=== PATIENT | female | born 1990 | race Caucasian/White ===

== ENCOUNTER 2016-08-27 20:45 | Emergency (ER) | payer OTHER ==
[~2016-08-27 20:45] MED LIST: CENTRUM PO; DESYREL50 MG DOB; EFFEXOR100 MG PO; MOTRIN600 MG PO; NO MEDICATIONS; PEN-VEE K PO; PRENATAL VITAMI1 TA3 PO
== END 2016-08-27 21:43 | disposition left against medical advice (07) ==
LOC: CED 20:45
DX: Z53.21 Procedure and treatment not carried out due to patient leaving prior to being seen by health care provider (principal)

== ENCOUNTER 2016-09-01 11:00 | Inpatient (IN) | payer OTHER ==
--- NOTE | ~2016-09-01 | HP ---
Unit #: [id number] #: [id number] Patient: VICENTA BEAL [id number] [place] [address] [id number] MR#: [id number] NAME: VICENTA BEAL ROOM: P171 Age: 26 Sex: F Admission Date: 09/01/2016 : 1990 Attending Physician: Thaddeus Hernandez M.D. Admitting Physician: Thaddeus Hernandez M.D. Primary Care Physician: Primary Care Physician No HISTORY AND PHYSICAL HISTORY OF PRESENT ILLNESS The patient is a 26-year-old female who states she is admitted due to detox from heroin. PAST MEDICAL HISTORY Significant for depression. PAST SURGICAL HISTORY Significant for times four and a LEEP procedure. SOCIAL HISTORY Positive for heroin. ALLERGIES None. FAMILY HISTORY Noncontributory. REVIEW OF SYSTEMS CONSTITUTIONAL: No fever or chills. HEENT: Denies any sore throat, ear pain or runny nose. CARDIOVASCULAR: Denies chest pain, irregular heart rhythm or palpitations. CHEST: Denies shortness of breath or cough. No hemoptysis. GASTROINTESTINAL: Denies nausea, vomiting, diarrhea or chronic constipation. ENDOCRINE: Denies history of increased thirst or urination. No recent significant weight loss or gain. GENITOURINARY: Denies dysuria, frequency, or hematuria. SKIN: Denies any rashes. HEMATOLOGIC: Denies history of increased bleeding or bruising. MUSCULOSKELETAL: Denies any hot, swollen joints. No generalized muscle pain. NEUROLOGIC: Denies problems with vision or speech. No frequent, severe headaches. No numbness, tingling or weakness in any extremities. Denies loss of bladder or bowel control. CURRENT MEDICATIONS 1. Effexor ER 150 mg p.o. daily 2. Trazodone 50 mg p.o. daily Unit #: [id number] #: [id number] Patient: VICENTA BEAL PHYSICAL EXAMINATION GENERAL: Alert, oriented in no acute distress. VITAL SIGNS: Blood pressure 111/70, heart rate 90, respiration 16. HEIGHT: 5 feet 3 inches WEIGHT: 150 pounds SKIN: Warm and dry without rash. Tattoo to the right upper arm mid line lumbar area and also the left ankle. HEENT: Normocephalic. TMs not viewed. Oral and nasal passages clear. Conjunctivae clear. PERRLA. EOMs intact. NECK: Supple without lymphadenopathy or thyromegaly. HEART: Regular rate and rhythm without murmur. LUNGS: Clear. ABDOMEN: Soft, nontender, without masses or hepatosplenomegaly. : Not done. EXTREMITIES: No evidence of cyanosis, clubbing or edema. Moves all without focal deficit. NEUROLOGICAL: Grossly within normal limits. Cranial Nerves: II: Visual bautista are intact. III, IV AND : Extraocular movements are intact. Pupils are equal, round and reactive to light. V: Facial sensation is grossly normal. VII: Facial movements and expression are normal. VIII: Auditory acuity grossly intact. IX, X: Uvula is midline. Phonation is normal. XI: Patient shrugs shoulders and turns head normally. XII: Tongue protrudes in the midline. Sensory and Motor Function: Sensory and motor sensation is grossly normal. Motor: moves all extremities well. Coordination: Gait is normal. Deep Tendon Reflexes: Intact. IMPRESSION Psychiatric admission. RECOMMENDATIONS Psychiatric, per psychiatrist. MEDICAL: I see no contraindications to participating in facility's activities. MEDICAL PROGNOSIS Good. Dictated by... Yong May/dyana TD: 09/03/2016 02:44 JOB #: [id number] Unit #: [id number] #: [id number] Patient: VICENTA BEAL HISTORY AND PHYSICAL Page 1 of 1 X Peace Brown APR X HISTORY AND PHYSICAL
--- NOTE | ~2016-09-01 | DS ---
Unit #: [id number] #: [id number] Patient: VICENTA LOPEZ [id number] [facility] [place] [place] [address] [id number] I MR#: [id number] NAME: VICENTA LOPEZ ROOM: P171 Age: 26 Sex: F Admission Date: 09/01/2016 : 1990 Discharge Date: 09/07/2016 Attending Physician: Thaddeus Hernandez M.D. Primary Care Physician: Primary Care Physician No DISCHARGE SUMMARY IDENTIFYING DATA Ms. Lopez is a 26-year-old single white female, who is a resident of [place], [place] and was self-referred to the hospital on a voluntary basis and with the chief complaint of "suicidal ideation and needed detox services." HISTORY OF PRESENT ILLNESS Please see initial psychiatric evaluation for details. PAST PSYCHIATRIC HISTORY Please see initial psychiatric evaluation for details. PAST MEDICAL HISTORY Please see initial psychiatric evaluation for details. HOSPITAL COURSE The patient was admitted to the Adult Chemical Dependency Unit at [facility] claribel Issa and was oriented to the hospital environment, routine p.r.n. medications were initiated and she was started back on her home medications and her medications were adjusted and detox protocol was maintained and she was closely monitored. The patient was taking the medications regularly and tolerating them fairly well and was able to show a fairly decent therapeutic response with improvement in depression and anxiety, and was denying any suicidal ideations, intent, or plan, and will need to continue treatment on outpatient basis, and as such it was decided that she will be discharged home to continue treatment on an outpatient basis. DISCHARGE DIAGNOSES Galva I Major depressive disorder, recurrent, moderate without psychotic features. Opiate dependence, moderate, in acute withdrawal. Amphetamine dependence, moderate. Galva II Galva III None. Galva IV Moderate psychosocial stressors. Galva V DISCHARGE MEDICATIONS None. CONDITION AT DISCHARGE Unit #: [id number] #: [id number] Patient: VICENTA LOPEZ Stable. PROGNOSIS Fair. Dictated by... Nancy Pozo/floridalma TD: 09/07/2016 10:07 JOB #: [id number] DISCHARGE SUMMARY Page 1 of 1 X Thaddeus Hernandez MD DISCHARGE SUMMARY
--- NOTE | ~2016-09-01 | PN ---
Unit #: [id number] #: [id number] Patient: VICENTA LOPEZ [id number] [facility] [address] [place] [address] [id number] I MR#: [id number] NAME: VICENTA LOPEZ ROOM: [facility] Age: 26 Sex: F Admission Date: 09/01/2016 : 1990 Attending Physician: Thaddeus Hernandez M.D. Admitting Physician: Thaddeus Hernandez M.D. Primary Care Physician: Primary Care Physician Simona SERRANO NOTES DATE September 06, 2016 DISCUSSION Ms. Lopez is a 26-year-old white female, who was seen today and chart was reviewed and the case was discussed with the staff. She has been anxious, withdrawn, but has not shown any agitation, irritability, or behavioral problems and has been cooperative with the treatment recommendations, and she has been taking the medications and tolerating them fairly well with no reported side effects. MENTAL STATUS EXAMINATION Young white female, who was casually dressed with fair personal hygiene and appears to be in no acute distress or discomfort. The patient was awake and alert with impaired attention and concentration. Her mood was anxious with a congruent affect. Her speech is slow and restricted in content. Her thought processes are disorganized with some looseness of associations. Her insight and judgment remain significantly impaired. TREATMENT PLAN 1. We will continue her on her current medications and treatment protocol, and will monitor her response to the medications, and make further adjustments as needed. 2. We will continue to followup. Dictated by... Nancy Pozo/floridalma TD: 09/06/2016 08:52 JOB #: [id number] Unit #: [id number] #: [id number] Patient: VICENTA LOPEZ PROGRESS NOTES Page 1 of 1 X Thaddeus Hernandez MD PROGRESS NOTE
--- NOTE | ~2016-09-01 | PN ---
Unit #: [id number] #: [id number] Patient: VICENTA LOPEZ [id number] [facility] [address] [place] [address] [id number] I MR#: [id number] NAME: VICENTA LOPEZ ROOM: 71 Age: 26 Sex: F Admission Date: 09/01/2016 : 1990 Attending Physician: Thaddeus Hernandez M.D. Admitting Physician: Thaddeus Hernandez M.D. Primary Care Physician: Primary Care Physician Simona SERRANO NOTES DATE 09/05/2016 DISCUSSION Ms. Lopez is a 26-year-old white female who was seen today and chart was reviewed and case was discussed with the staff. She appears to be doing fairly well and has been showing mood and daily functioning and coming out of the detox without any complications. MENTAL STATUS EXAMINATION Young white female who was casually dressed with fair personal hygiene and appears to be in no acute distress or discomfort. She was awake and alert with intact orientation. Her mood was anxious with congruent affect. She denies any suicidal or homicidal ideation. Her insight and judgement remains slightly impaired. TREATMENT PLAN 1. Will continue on current medications and treatment protocol. Will monitor her response to medications and make further adjustments as needed. 2. Will continue to follow up. Dictated by... Nancy Pozo/sara TD: 09/05/2016 18:19 JOB #: [id number] Unit #: [id number] #: [id number] Patient: VICENTA LOPEZ PROGRESS NOTES Page 1 of 1 X Thaddeus Hernandez MD PROGRESS NOTE
--- NOTE | ~2016-09-01 | PN ---
Unit #: [id number] #: [id number] Patient: VICENTA LOPEZ [id number] [facility] [address] [place] [address] [id number] I MR#: [id number] NAME: VICENTA LOPEZ ROOM: 71 Age: 26 Sex: F Admission Date: 09/01/2016 : 1990 Attending Physician: Tahddeus Hernandez M.D. Admitting Physician: Thaddeus Hernandez M.D. Primary Care Physician: Primary Care Physician Simona DEL CID PROGRESS NOTES DATE 09/02/2016 DISCUSSION Miss Lopez is a 26-year-old white female with mood disorder and substance abuse who was seen today and chart was reviewed and case was discussed with the staff. She has been anxious, withdrawn in distress and discomfort. Meanwhile, she has been taking medications and tolerating them fairly well with no reported side effects. MENTAL STATUS EXAMINATION Young white female who was casually dressed with fair personal hygiene, appears to be in no acute distress or discomfort. She was awake and alert with intact orientation. Her mood was anxious with congruent affect. Her speech was slow and goal-directed. She denies any suicidal or homicidal ideations. Her insight and judgement remains slightly impaired. TREATMENT PLAN 1. We will continue her on her current medications and treatment protocol. We will monitor her response to the medication and make further adjustments as needed. 2. We will continue to follow up. Dictated by... Nancy Pozo/dyana TD: 09/04/2016 04:08 JOB #: [id number] Unit #: [id number] #: [id number] Patient: VICENTA LOPEZ ANDREIADERICK PROGRESS NOTES Page 1 of 1 X Thaddeus Hernandez MD PROGRESS NOTE
--- NOTE | ~2016-09-01 | PN ---
Unit #: [id number] #: [id number] Patient: VICENTA LOPEZ [id number] [facility] [address] [place] [address] [id number] I MR#: [id number] NAME: VICENTA LOPEZ ROOM: [facility] Age: 26 Sex: F Admission Date: 09/01/2016 : 1990 Attending Physician: Thaddeus Hernandez M.D. Admitting Physician: Thaddeus Hernandez M.D. Primary Care Physician: Primary Care Physician Simona SERRANO NOTES DATE September 02, 2016 DISCUSSION Ms. Lopez is a 26-year-old white female, with mood disorder, who was seen today and chart was reviewed and the case was discussed with the staff. The patient has been anxious, withdrawn, and rather seclusive to herself, meanwhile, she has been cooperative with the treatment recommendations and she has been taking the medications and tolerating them fairly well with no reported side effects. MENTAL STATUS EXAMINATION Young white female, who was casually dressed with fair personal hygiene and appears to be in no acute distress or discomfort. She was awake and alert with impaired attention and concentration. Her mood was anxious with a congruent affect. The patient denies any suicidal or homicidal ideations. Her insight and judgment remain slightly impaired. TREATMENT PLAN 1. We will continue her on her current medications and treatment protocol, and will monitor her response to the medications, and make further adjustments as needed. 2. We will continue to followup. Dictated by... Nancy Pozo/floridalma TD: 09/03/2016 06:46 JOB #: [id number] Unit #: [id number] #: [id number] Patient: VICENTA LOPEZ NEHEMIAS PROGRESS NOTES Page 1 of 1 X Thaddeus Hernandez MD PROGRESS NOTE
--- NOTE | ~2016-09-01 | PA ---
Unit #: [id number] #: [id number] Patient: VICENTA BEAL [id number] [facility] [address] [place] [address] [id number] I MR#: [id number] NAME: VICENTA BEAL ROOM: P171 Age: 26 Sex: F Admission Date: 09/01/2016 : 1990 Date of Assessment: Attending Physician: Thaddeus Hernandez M.D. Admitting Physician: Thaddeus Hernandez M.D. Primary Care Physician: Primary Care Physician No PSYCHIATRIC ASSESSMENT DATE OF SERVICE 09/01/2016. IDENTIFYING DATA Ms. Beal is a 26-year-old single white female, who is a resident of [place], [place], and was self-referred to the hospital on a voluntary basis. CHIEF COMPLAINT "Suicidal ideations and I need detox services." HISTORY OF PRESENT ILLNESS Ms. Beal is a 26-year-old white female with history of substance abuse and mood disorder, who was self-referred to the hospital reporting increasing depression and substance abuse issues, and she is suicidal with a plan to overdose on heroin and states that she has been using the drugs for the last 4 to 5 years. She states over the past month, she has used 0.5 g to 1 g of heroin on a daily basis and she has been using the drugs to deal with her mental health issues. She stated that her brother overdosed and about a month ago and that she is also still grieving the of her fiance who also overdosed, and stated that she and her mother got into an argument this morning about her substance abuse issues and she states that her mother has joint custody of her 3 children. She states that after the argument with her mother, she wanted to overdose and and that she was brought to the hospital by her father. Her last use of heroin was yesterday and reports that she started experiencing significant detox symptoms. SUBSTANCE ABUSE HISTORY The patient reports extensive history of substance abuse and dependence, though currently she reports heroin to be her drug of choice, though she reports that she has been using 0.5 to 1 g of heroin a day via IV route and has been experimenting with methamphetamine as well. PAST PSYCHIATRIC HISTORY The patient has had a history of inpatient chemical dependency treatment at [facility] and has done outpatient treatment program at [facility], and review of the medical records indicate that she has been diagnosed and treated for mood disorder and is supposed to be on Effexor and trazodone, but has been noncompliant with medications. PAST MEDICAL HISTORY No acute or chronic medical illnesses. Unit #: [id number] #: [id number] Patient: VICENTA BEAL ALLERGIES No known medication allergies. PERSONAL AND SOCIAL HISTORY A 26-year-old white female, who reports that she is single, unemployed, and essentially homeless and has poor social support system. MENTAL STATUS EXAMINATION Young white female, who was casually dressed with fair personal hygiene, appears to be in no acute distress or discomfort. She was awake and alert on interaction with intact orientation to time, place, and person. Her mood was anxious and depressed with a congruent affect. Her speech was slow and restricted in content. She reports having suicidal ideations, but denies any homicidal ideations and also denies any auditory or visual hallucinations. Her insight and judgment remain significantly impaired. DIAGNOSTIC IMPRESSION Psychiatric: Major depressive disorder, recurrent, moderate, without psychotic features; opioid dependence, moderate, in acute withdrawals; and methamphetamine dependence, moderate. Medical: None. Stressors: Moderate psychosocial stressors. TREATMENT PLAN 1. The patient has presented with a history of substance abuse and mood disorder and has been decompensating and will need inpatient hospitalization for detoxification, safety, and stabilization. We will start her back on her home medications and we will adjust the medications and monitor response. 2. Supportive therapy was provided to the patient. 3. Safe, structured, and nourishing environment will be provided. ESTIMATED LENGTH OF STAY 5 to 7 days. ABILITY TO HELP SELF Limited. WILLINGNESS TO HELP SELF The patient appears to be willing to help self. STRENGTHS 1. Communicative. 2. Cooperative. PROBLEMS 1. Chronic dysphoric symptoms. 2. Chronic chemical dependency. 3. Poor social support system. DISCHARGE CRITERIA This will be contingent upon the patient's ability to show resolution of her depression and anxiety and her ability to stay safe to herself, particularly after discharge from the hospital. Dictated by... Unit #: [id number] #: [id number] Patient: VICENTA BEAL Nancy Pozo/lindsey TD: 09/02/2016 14:55 JOB #: [id number] PSYCHIATRIC ASSESSMENT Page 1 of 1 X Thaddeus Hernandez MD PSYCHIATRIC ASSESSMENT
--- NOTE | ~2016-09-01 | PN ---
Unit #: [id number] #: [id number] Patient: VICENTA LOPEZ [id number] [facility] [address] [place] [address] [id number] I MR#: [id number] NAME: VICENTA LOPEZ ROOM: 71 Age: 26 Sex: F Admission Date: 09/01/2016 : 1990 Attending Physician: Thaddeus Hernandez M.D. Admitting Physician: Thaddeus Hernandez M.D. Primary Care Physician: Primary Care Physician Simona SERRANO NOTES DATE September 04, 2016 DISCUSSION Ms. Lopez is a 26-year-old white female, who was seen today and chart was reviewed and the case was discussed with the staff. The patient has been anxious, withdrawn, and rather seclusive to herself. Meanwhile, she has been cooperative with the treatment recommendations and she has been taking the medications and has been tolerating them fairly well. MENTAL STATUS EXAMINATION Young white female, who was casually dressed with fair personal hygiene and appears to be in no acute distress or discomfort. She was awake and alert on interaction with intact orientation. Her mood is anxious with a congruent affect. The patient denies any suicidal or homicidal ideations. Her insight and judgment remain slightly impaired. TREATMENT PLAN 1. We will continue her on her current medications and treatment protocol, and will monitor her response to the medications, and make further adjustments as needed. 2. We will continue to followup. Dictated by... Nancy Pozo/floridalma TD: 09/05/2016 09:28 JOB #: [id number] Unit #: [id number] #: [id number] Patient: VICENTA LOPEZ NEHEMIAS PROGRESS NOTES Page 1 of 1 X Thaddeus Hernandez MD PROGRESS NOTE
[2016-09-02 11:34] LABS: BASOPHIL% 0.8 % (0-2.5); EOSINOPHIL# 0.1 X10e3 (0-0.7); EOSINOPHIL% 3.4 % (0.0-7.0); HEMATOCRIT 39.4 % (35.0-45.0); HEMOGLOBIN 13.1 gm/dL (12.0-16.0); LYMPHOCYTE% 50.2 % (17.0-45.0); MEAN CELL VOLUME 88.7 FL (83-96); MEAN CORPUSCULAR HEMOGLOBIN 29.5 PG (28-34); MEAN CORPUSCULAR HGB CONC 33.3 g/dL (30-36); MEAN PLATELET VOLUME 10.3 FL (6.5-11.5); MONOCYTE# 0.5 X10e3 (0-1.0); MONOCYTE% 13.2 % (3.0-12.0); NEUTROPHIL# 1.3 X10e3 (1.5-7.1); NEUTROPHIL% 32.4 % (40-75); PLATELET COUNT 196 X10e3 (140-420); RED BLOOD COUNT 4.45 X10e (3.90-5.30); RED CELL DISTRIBUTION WIDTH 12.7 % (11.0-15.5)
[2016-09-02 11:35] LABS: DIFF IND YES
[2016-09-02 11:46] LABS: ALBUMIN SERUM 3.5 g/dL (3.5-5.0); BILIRUBIN,TOTAL 0.6 mg/dL (0.2-2.0); BUN/CREATININE RATIO 18.57; CALCIUM SERUM 9.2 mg/dL (8.4-10.2); CREATININE SERUM 0.7 mg/dL (0.6-1.4); GLOM FILT RATE Estimated 117.9 mL/min (>60); POTASSIUM 3.4 mmol/L (3.5-5.1); PROTEIN TOTAL SERUM 6.5 g/dL (6.0-8.3)
[2016-09-02 13:22] LABS: RBC NORMAL YES
[2016-09-02 13:23] LABS: PLATELET ESTIMATE NORMAL (NORMAL)
[2016-09-05 09:48] LABS: URINE APPEARANCE CLEAR; URINE BILIRUBIN NEG (NEG); URINE BLOOD 2+ (NEG); URINE COLOR YELLOW; URINE GLUCOSE NEG (NEG); URINE KETONE NEG (NEG); URINE LEUKOCYTE ESTERASE NEG (NEG); URINE NITRATE NEG (NEG); URINE PROTEIN NEG (NEG); URINE SPECIFIC GRAVITY 1.005 (1.003-1.035); URINE UROBILINOGEN 0.2 MG/DL (NEG)
[2016-09-05 09:52] LABS: URINE BACTERIA AUWI NEG (NEGATIVE); URINE SQUAMOUS EPITHELIAL CELL NONE SEEN /[HPF]; UWBCS1 AUWI 0-2 (0-5)
[2016-09-05 10:30] LABS: AMPHETAMINE NEG (NEG); BARBITURATES NEG (NEG); BENZODIAZEPINES NEG (NEG); COCAINE NEG (NEG); MARIJUANA NEG (NEG); OPIATES NEG (NEG); TRICYCLIC ANTIDEPRESSANTS NEG (NEG); U METHADONE NEG (NEG)
== END 2016-09-07 09:15 | DRG 885 ==
LOC: P1E 13:41
PROVIDERS: Psychiatry & Neurology Psychiatry
PROC: HZ2ZZZZ Detoxification Services for Substance Abuse Treatment (ICD-10-PCS; principal; 2016-09-01)
DX: F33.1 Major depressive disorder, recurrent, moderate (principal); F15.20 Other stimulant dependence, uncomplicated; R45.851 Suicidal ideations; F11.23 Opioid dependence with withdrawal; F41.9 Anxiety disorder, unspecified
CPT/HCPCS: 80053; 80307; 81003; 85025; 86592